=== PATIENT | male | born 1975 | race Caucasian/White ===

== ENCOUNTER 2018-01-23 20:42 | Emergency (ER) | payer OTHER ==
[2018-01-23 20:47] VITALS: BP 152/115
--- NOTE | 2018-01-23 20:47 | ER Report ---
History and Physical Time Seen By MD: 20:47 HPI/ROS CHIEF COMPLAINT: Right hand laceration HISTORY OF PRESENT ILLNESS: 42-year-old male who accidentally stabbed his right hand in the webspace of the thumb with a stick sustaining a deep laceration with a flap. Patient's last tetanus vaccine is not up-to-date. Patient denies any other injuries. Allergies: Coded Allergies: No Known Drug Allergies (Unverified , 01/23/18) Home Meds No Active Prescriptions or Reported Meds Constitutional Vital Sign - Last 24 Hours 01/23/18 20:47 Temp 99.2 Pulse 106 Resp 14 B/P (MAP) 152/115 Pulse Ox 90 O2 Delivery Room Air Physical Exam General appearance: Alert no distress. Respiratory: Chest is non tender, lungs are clear to auscultation. Cardiac: Regular rate and rhythm Extremities: Examination of the left hand reveals a large flap laceration in the webspace of the right thumb extending deep into the tissues of the hand. The laceration extends in a U-shaped fashion. Approximately 1.5 cm there is a deep hole penetrating deep into the fascia DIFFERENTIAL DIAGNOSIS: After history and physical exam differential diagnosis was considered for puncture wound, laceration, foreign body, joint penetration, tendon injury Medical Decision Making ED Course/Re-evaluation ED Course Procedure: Laceration repair. Verbal consent was obtained from the patient. The 1.5 cm laceration on the right thumb web space was anesthetized in the usual fashion. The wound was scrubbed, draped and explored to its base with a gloved finger. There were no deep structures involved. No tendon injury was identified. The wound was repaired with 5-0 Prolene 3 sutures. The wound repair was simple. The procedure was performed by myself. Patient was advised to watch for signs of infection. Wound care was discussed, suture removal will be in 12 days. Patient's tetanus vaccine was updated. Decision to Disposition Date: Jan 23, 2018 Decision to Disposition Time: 21:23 Depart Departure Latest Vital Signs Vital Signs Date Time Temp Pulse Resp B/P (MAP) Pulse Ox O2 Delivery O2 Flow Rate FiO2 01/23/18 20:47 99.2 106 14 152/115 90 Room Air Impression: Primary Impression: Laceration of right hand Condition: Improved Disposition: HOME OR SELF-CARE New Scripts No Active Prescriptions or Reported Meds Patient Instructions: Hand Laceration Additional Instructions: Perform daily wound care. Cover with antibiotic ointment and a dressing Watch for signs and symptoms of infection Have your stitches removed in 12 days Problem Qualifiers Primary Impression: Laceration of right hand Encounter type: initial encounter Foreign body presence: without foreign body Qualified Codes: S61.411A - Laceration without foreign body of right hand , initial encounter SELENE MCCLOUD DO Jan 23, 2018 20:47
[2018-01-23] MEDS ORDERED: DIPHTH/TETANUS/ACEL. PERTUSSIS IM ONLY ONE (20:55)
== END 2018-01-23 21:33 | disposition home or self-care (01) ==
LOC: ER 21:23
DX: S61.411A Laceration without foreign body of right hand, initial encounter (principal)
CPT/HCPCS: 90471; 90715; 99283